=== PATIENT | male | born 1970 | race Caucasian/White ===

== ENCOUNTER 2020-08-24 08:02 | Inpatient (IN) ==
[2020-08-24] MEDS ORDERED: SODIUM CHLORIDE 0.9% 1,000 ML IV STA (08:24)
[2020-08-24] MEDS ORDERED: ETOMIDATE 20 MG/10 ML VIAL IV ONE (08:24)
[2020-08-24] MEDS ORDERED: ROCURONIUM 100 MG/10 ML VIAL IV ONE (08:25)
[2020-08-24 08:35] LABS: Basophils # 0.1 10*3/uL (0.0-0.2); Basophils % 1.4 % (0.0-0.8); Eosinophils # 0.5 10*3/uL (0.0-0.87); Eosinophils % 5.5 % (0.00-10.9); Hematocrit 51.3 VOL% (42.0-52.0); Hemoglobin 17.6 GM/DL (14.0-18.0); Immature Granulocytes % 0.2 %; Immature Granulocytes Absolute 0.02 #; Lymphocytes # 1.9 10*3/uL (1.4-4.0); Lymphocytes % 21.8 % (21.2-54.2); Mean Corpuscular HGB Conc 34.3 GM/DL (32-36); Mean Corpuscular Volume 97.9 FL (87-102); Mean Platelet Volume 9.5 FL (9.6-12.0); Monocytes % 12.8 % (1.7-12.7); Neutrophils % 58.3 % (38.7-73.9); Platelet Count 245 T/CUMM (130-400); Red Blood Count 5.24 MC/CUMM (3.8-5.5); Red Cell Distribution Width 13.8 % (9.3-17.3); White Blood Count 8.8 T/CUMM (4-12)
[2020-08-24 08:51] LABS: INR 1.2; PT Patient Result 12.3 SECS (9.8-11.9); Partial Thromboplastin Time 28.8 SECS (23.9-33.8)
[2020-08-24 09:16] LABS: Alanine Aminotransferase 47 U/L (16-61); Albumin 3.2 G/DL (3.4-5.0); Alkaline Phosphatase 160 U/L (45-117); Aspartate Amino Transferase 87 U/L (0-37); Blood Urea Nitrogen 12 MG/DL (7-18); Calcium 10.6 MG/DL (8.5-10.1); Carbon Dioxide 26 MMOL/L (21-32); Estimated Glom Filtration Rate 81 ML/MIN; Glucose 105 MG/DL (74-106); Osmolality,Calculated 272.8 MOS/KG (273-304); Potassium 4.6 MMOL/L (3.5-5.1); Sodium 137 MMOL/L (136-145); Total Protein 8.3 G/DL (6.4-8.3)
[2020-08-24 09:26] LABS: ABG HCO3 26.2 MMOL/L (20-26); ABG Oxygen Saturation 98.2 % (95-100); ABG PCO2 45.8 MM HG (35-48); ABG PH 7.391 (7.35-7.45); ABG TCO2 22.8 MMOL/L (23-27)
[2020-08-24 09:46] LABS: Bilirubin,Urine Negative (Negative); Blood, Urine Negative (Negative); Glucose,Urine (UA) Negative (Negative); Ketones,Urine Negative (Negative); Nitrite,Urine Negative (Negative); Protein,Urine Negative; Urine Appearance Clear (Clear); Urine Color Amber (Yellow); Urine Specific Gravity 1.005 (1.001-1.035)
[2020-08-24 10:10] LABS: Barbiturates Screen,Urine Negative (Negative); Benzodiazepines Screen,Urine Negative (Negative); Cannabinoid Screen,Urine Positive (Negative); Opiate Screen,Urine Negative (Negative); Phencyclidine Screen,Urine Negative (Negative)
[2020-08-24] MEDS ORDERED: ONDANSETRON 4 MG/2 ML VIAL IV PRN (10:15)
[2020-08-24] MEDS: FAMOTIDINE 20 MG/2 ML VIAL IV SCH ×2 (10:55→21:47)
[2020-08-24] MEDS: ENOXAPARIN 40 MG/0.4 ML SYRINGE SUBCUT SCH (10:58)
[2020-08-24] MEDS: LACTATED RINGERS 1,000 ML IV SCH (10:58)
[2020-08-24 11:52] LABS: Ferritin 534.2 ng/ml (26-388)
[2020-08-24] MEDS ORDERED: LACTULOSE 20 GM/30 ML UDCUP PO SCH (12:00)
[2020-08-24] MEDS: LACTULOSE 20 GM/30 ML UDCUP PO SCH ×2 (15:40→21:44)
[2020-08-24] MEDS: PROPRANOLOL 40 MG TABLET PO SCH (21:44)
[2020-08-24] MEDS: risperiDONE 1 MG TABLET PO SCH (21:44)
[2020-08-25] MEDS: LACTATED RINGERS 1,000 ML IV SCH ×3 (01:31→21:30)
[2020-08-25 03:53] LABS: Allen Test Positive; Pt O2 Delivery Device Ventilator
[2020-08-25 03:55] LABS: ABG Base Excess 2.2 MMOL/L (-2.5-2.5); ABG HCO3 23.4 MMOL/L (20-26); ABG Oxygen Saturation 99.4 % (95-100); ABG PCO2 28.4 MM HG (35-48); ABG PH 7.534 (7.35-7.45); ABG PO2 243.1 MM HG (80-95); ABG TCO2 24.3 MMOL/L (23-27)
[2020-08-25 05:22] LABS: Basophils # 0.2 10*3/uL (0.0-0.2); Basophils % 1.6 % (0.0-0.8); Eosinophils # 0.4 10*3/uL (0.0-0.87); Eosinophils % 4.6 % (0.00-10.9); Hematocrit 47.7 VOL% (42.0-52.0); Hemoglobin 16.3 GM/DL (14.0-18.0); Immature Granulocytes % 0.2 %; Immature Granulocytes Absolute 0.02 #; Lymphocytes # 1.7 10*3/uL (1.4-4.0); Lymphocytes % 18.4 % (21.2-54.2); Mean Corpuscular HGB Conc 34.2 GM/DL (32-36); Mean Platelet Volume 9.4 FL (9.6-12.0); Monocytes % 14.9 % (1.7-12.7); Neutrophils % 60.3 % (38.7-73.9); Platelet Count 183 T/CUMM (130-400); Red Blood Count 4.82 MC/CUMM (3.8-5.5); Red Cell Distribution Width 14.2 % (9.3-17.3); White Blood Count 9.4 T/CUMM (4-12)
[2020-08-25 05:49] LABS: Albumin 2.6 G/DL (3.4-5.0); Bilirubin,Total 2.5 MG/DL (0.2-1.0); Calcium 9.3 MG/DL (8.5-10.1); Osmolality,Calculated 285.8 MOS/KG (273-304); Potassium 3.9 MMOL/L (3.5-5.1); Total Protein 6.7 G/DL (6.4-8.3)
[2020-08-25] MEDS ORDERED: MAGNESIUM SULF RIDER 4 GM in PREMIX 1 EACH IV PRN (07:18)
[2020-08-25] MEDS ORDERED: MAGNESIUM SULF RIDER 2 GM in PREMIX 1 EACH IV PRN (07:18)
[2020-08-25] MEDS: LACTULOSE 20 GM/30 ML UDCUP PO SCH ×3 (09:40→20:14)
[2020-08-25] MEDS: risperiDONE 1 MG TABLET PO SCH ×2 (09:41→20:59)
[2020-08-25] MEDS: PROPRANOLOL 40 MG TABLET PO SCH ×2 (09:41→21:00)
[2020-08-25] MEDS: ENOXAPARIN 40 MG/0.4 ML SYRINGE SUBCUT SCH (10:40)
[2020-08-25] MEDS: RIFAXIMIN 550 MG TABLET PER TUBE SCH ×2 (11:27→21:00)
[2020-08-25] MEDS: FAMOTIDINE 20 MG/2 ML VIAL IV SCH ×2 (11:27→22:42)
[2020-08-25] MEDS: ARFORMOTEROL 15 MCG/2 ML NEB RESP TX SCH (19:01)
[2020-08-26 04:51] LABS: ABG Base Excess 2.6 MMOL/L (-2.5-2.5); ABG HCO3 26.7 MMOL/L (20-26); ABG Oxygen Saturation 97.9 % (95-100); ABG PCO2 34.6 MM HG (35-48); ABG PH 7.478 (7.35-7.45); ABG TCO2 21.4 MMOL/L (23-27); Allen Test Positive; Pt O2 Delivery Device Ventilator
[2020-08-26] MEDS: LACTATED RINGERS 1,000 ML IV SCH ×2 (07:30→18:22)
[2020-08-26 07:34] LABS: Basophils # 0.1 10*3/uL (0.0-0.2); Basophils % 1.2 % (0.0-0.8); Eosinophils # 0.3 10*3/uL (0.0-0.87); Eosinophils % 2.5 % (0.00-10.9); Hematocrit 46.9 VOL% (42.0-52.0); Hemoglobin 15.2 GM/DL (14.0-18.0); Immature Granulocytes % 0.4 %; Immature Granulocytes Absolute 0.04 #; Lymphocytes # 1.7 10*3/uL (1.4-4.0); Lymphocytes % 16.6 % (21.2-54.2); Mean Corpuscular HGB Conc 32.4 GM/DL (32-36); Mean Corpuscular Volume 104.7 FL (87-102); Mean Platelet Volume 10.1 FL (9.6-12.0); Monocytes % 16.8 % (1.7-12.7); Neutrophils % 62.5 % (38.7-73.9); Platelet Count 129 T/CUMM (130-400); Red Blood Count 4.48 MC/CUMM (3.8-5.5); Red Cell Distribution Width 13.9 % (9.3-17.3); White Blood Count 10.3 T/CUMM (4-12)
[2020-08-26 07:49] LABS: Albumin 2.4 G/DL (3.4-5.0); Bilirubin,Total 3.2 MG/DL (0.2-1.0); Calcium 8.7 MG/DL (8.5-10.1); Osmolality,Calculated 291.6 MOS/KG (273-304); Potassium 4.1 MMOL/L (3.5-5.1); Total Protein 6.5 G/DL (6.4-8.3)
[2020-08-26] MEDS: ARFORMOTEROL 15 MCG/2 ML NEB RESP TX SCH ×2 (07:53→19:46)
[2020-08-26 07:57] LABS: Atypical Lymphocytes Few; Band Neutrophils 1 % (0-10); Eosinophils 6 % (0-10); Lymphocytes 16 % (20-55); Segmented Neutrophils 65 % (50-85); Total Cells Counted 100
[2020-08-26 07:58] LABS: Hypochromasia 1+; Microcytosis 1+; Platelet Estimate Adequate
[2020-08-26] MEDS: LACTULOSE 20 GM/30 ML UDCUP PO SCH ×3 (08:17→21:34)
[2020-08-26] MEDS: RIFAXIMIN 550 MG TABLET PER TUBE SCH ×2 (08:17→21:34)
[2020-08-26] MEDS: PROPRANOLOL 40 MG TABLET PO SCH ×2 (08:18→21:34)
[2020-08-26] MEDS: risperiDONE 1 MG TABLET PO SCH ×2 (08:23→21:34)
[2020-08-26] MEDS: ENOXAPARIN 40 MG/0.4 ML SYRINGE SUBCUT SCH (10:11)
[2020-08-26] MEDS: FAMOTIDINE 20 MG/2 ML VIAL IV SCH ×2 (10:11→22:35)
[2020-08-26] MEDS ORDERED: DEXTROSE 50% 25 GM/50 ML VIAL IV PRN (11:46)
[2020-08-26] MEDS ORDERED: GLUCAGON 1 MG VIAL IM PRN (11:46)
[2020-08-26] MEDS: CLINDAMYCIN INJ 600 MG in PREMIX 1 EACH IV SCH ×2 (12:04→21:34)
[2020-08-26] MEDS: INSULIN REGULAR 100 UNIT/ML SUBCUT SCH ×2 (12:27→17:29)
[2020-08-27] MEDS: INSULIN REGULAR 100 UNIT/ML SUBCUT SCH ×4 (01:13→18:22)
[2020-08-27] MEDS: LACTATED RINGERS 1,000 ML IV SCH (04:25)
[2020-08-27] MEDS: CLINDAMYCIN INJ 600 MG in PREMIX 1 EACH IV SCH ×3 (04:30→20:32)
[2020-08-27 04:44] LABS: ABG Base Excess 2.9 MMOL/L (-2.5-2.5); ABG Oxygen Saturation 97.7 % (95-100); ABG PCO2 37.5 MM HG (35-48); ABG PH 7.459 (7.35-7.45); ABG PO2 94.5 MM HG (80-95); ABG TCO2 22.7 MMOL/L (23-27)
[2020-08-27 06:37] LABS: Mean Corpuscular HGB Conc 34.4 GM/DL (32-36)
[2020-08-27 06:48] LABS: Basophils # 0.1 10*3/uL (0.0-0.2); Eosinophils # 0.4 10*3/uL (0.0-0.87); Eosinophils % 5.1 % (0.00-10.9); Hematocrit 41.6 VOL% (42.0-52.0); Hemoglobin 14.3 GM/DL (14.0-18.0); Immature Granulocytes % 0.6 %; Immature Granulocytes Absolute 0.04 #; Lymphocytes # 1.2 10*3/uL (1.4-4.0); Lymphocytes % 16.9 % (21.2-54.2); Mean Corpuscular Volume 100.5 FL (87-102); Mean Platelet Volume 10.2 FL (9.6-12.0); Monocytes % 19.4 % (1.7-12.7); Red Blood Count 4.14 MC/CUMM (3.8-5.5); Red Cell Distribution Width 13.7 % (9.3-17.3)
[2020-08-27 06:51] LABS: Platelet Count 94 T/CUMM (130-400)
[2020-08-27 06:55] LABS: Bilirubin,Total 2.3 MG/DL (0.2-1.0); Calcium 8.7 MG/DL (8.5-10.1); Osmolality,Calculated 290.6 MOS/KG (273-304); Potassium 3.7 MMOL/L (3.5-5.1)
[2020-08-27] MEDS: ARFORMOTEROL 15 MCG/2 ML NEB RESP TX SCH ×2 (07:05→20:01)
[2020-08-27 07:53] LABS: Atypical Lymphocytes Few; Band Neutrophils 1 % (0-10); Eosinophils 3 % (0-10); Hypochromasia Slight; Lymphocytes 14 % (20-55); Segmented Neutrophils 69 % (50-85); Total Cells Counted 100
[2020-08-27 07:54] LABS: Microcytosis 1+; Platelet Estimate Decreased
[2020-08-27] MEDS: PROPRANOLOL 40 MG TABLET PO SCH ×2 (10:22→20:32)
[2020-08-27] MEDS: RIFAXIMIN 550 MG TABLET PER TUBE SCH ×2 (10:22→20:32)
[2020-08-27] MEDS: LACTULOSE 20 GM/30 ML UDCUP PO SCH ×3 (10:22→20:32)
[2020-08-27] MEDS: cefTRIAXone 1,000 MG in SYRINGE 1 EACH IV SCH (10:23)
[2020-08-27] MEDS: risperiDONE 1 MG TABLET PO SCH ×2 (10:26→20:32)
[2020-08-27] MEDS: FAMOTIDINE 20 MG/2 ML VIAL IV SCH ×2 (10:26→22:50)
[2020-08-27] MEDS: DEXMEDETOMIDINE 200 MCG in SODIUM CHLORIDE 0.9% 48 ML IV PRN ×3 (10:35→22:58)
[2020-08-27] MEDS ORDERED: LACTATED RINGERS 1,000 ML IV ONE (18:02)
[2020-08-27] MEDS: PHENYLEPHRINE DRIP 40 MG/250 ML PREMIX IV PRN (23:08)
[2020-08-28] MEDS: DEXMEDETOMIDINE 400 MCG in SODIUM CHLORIDE 0.9% 96 ML IV PRN ×3 (01:25→23:00)
[2020-08-28] MEDS: INSULIN REGULAR 100 UNIT/ML SUBCUT SCH ×4 (01:57→17:10)
[2020-08-28] MEDS: CLINDAMYCIN INJ 600 MG in PREMIX 1 EACH IV SCH ×3 (03:25→21:40)
[2020-08-28 04:52] LABS: ABG Base Excess 2.6 MMOL/L (-2.5-2.5); ABG HCO3 26.7 MMOL/L (20-26); ABG Oxygen Saturation 98.6 % (95-100); ABG PCO2 39.3 MM HG (35-48); ABG PH 7.442 (7.35-7.45); ABG TCO2 22.9 MMOL/L (23-27); Allen Test Positive; Pt O2 Delivery Device Ventilator
[2020-08-28 05:39] LABS: Basophils # 0.1 10*3/uL (0.0-0.2); Eosinophils # 0.4 10*3/uL (0.0-0.87); Eosinophils % 5.4 % (0.00-10.9); Hematocrit 42.1 VOL% (42.0-52.0); Immature Granulocytes % 0.4 %; Immature Granulocytes Absolute 0.03 #; Lymphocytes # 1.5 10*3/uL (1.4-4.0); Lymphocytes % 22.4 % (21.2-54.2); Mean Corpuscular HGB Conc 33.3 GM/DL (32-36); Mean Corpuscular Volume 103.7 FL (87-102); Mean Platelet Volume 10.4 FL (9.6-12.0); Monocytes % 19.4 % (1.7-12.7); Neutrophils % 51.4 % (38.7-73.9); Platelet Count 108 T/CUMM (130-400); Red Blood Count 4.06 MC/CUMM (3.8-5.5); Red Cell Distribution Width 13.3 % (9.3-17.3); White Blood Count 6.9 T/CUMM (4-12)
[2020-08-28 06:07] LABS: Anisocytosis 1+; Band Neutrophils 6 % (0-10); Eosinophils 5 % (0-10); Lymphocytes 19 % (20-55); Macrocytosis 1+; Platelet Estimate Adequate; Segmented Neutrophils 52 % (50-85); Total Cells Counted 100
[2020-08-28 06:18] LABS: Bilirubin,Total 2.2 MG/DL (0.2-1.0); Calcium 8.7 MG/DL (8.5-10.1); Osmolality,Calculated 291.6 MOS/KG (273-304)
[2020-08-28] MEDS: ARFORMOTEROL 15 MCG/2 ML NEB RESP TX SCH ×2 (08:11→19:55)
[2020-08-28] MEDS: RIFAXIMIN 550 MG TABLET PER TUBE SCH ×2 (08:45→21:45)
[2020-08-28] MEDS: PROPRANOLOL 40 MG TABLET PO SCH ×2 (08:45→21:45)
[2020-08-28] MEDS: cefTRIAXone 1,000 MG in SYRINGE 1 EACH IV SCH (08:46)
[2020-08-28] MEDS: LACTULOSE 20 GM/30 ML UDCUP PO SCH ×3 (08:46→21:45)
[2020-08-28] MEDS: risperiDONE 1 MG TABLET PO SCH ×2 (08:46→21:45)
[2020-08-28] MEDS: FAMOTIDINE 20 MG/2 ML VIAL IV SCH ×2 (09:43→22:48)
[2020-08-28] MEDS: PHENYLEPHRINE DRIP 40 MG/250 ML PREMIX IV PRN (12:50)
[2020-08-29] MEDS: INSULIN REGULAR 100 UNIT/ML SUBCUT SCH ×4 (00:07→17:56)
[2020-08-29] MEDS: DEXMEDETOMIDINE 400 MCG in SODIUM CHLORIDE 0.9% 96 ML IV PRN ×3 (03:15→19:27)
[2020-08-29] MEDS: CLINDAMYCIN INJ 600 MG in PREMIX 1 EACH IV SCH ×3 (04:05→21:33)
[2020-08-29 04:10] LABS: Basophils # 0.1 10*3/uL (0.0-0.2); Basophils % 1.4 % (0.0-0.8); Eosinophils # 0.3 10*3/uL (0.0-0.87); Eosinophils % 5.1 % (0.00-10.9); Hemoglobin 13.8 GM/DL (14.0-18.0); Immature Granulocytes % 0.4 %; Immature Granulocytes Absolute 0.02 #; Lymphocytes # 1.5 10*3/uL (1.4-4.0); Mean Corpuscular HGB Conc 33.7 GM/DL (32-36); Mean Corpuscular Volume 101.5 FL (87-102); Mean Platelet Volume 10.3 FL (9.6-12.0); Monocytes % 18.3 % (1.7-12.7); Neutrophils % 47.8 % (38.7-73.9); Platelet Count 115 T/CUMM (130-400); Red Blood Count 4.04 MC/CUMM (3.8-5.5); Red Cell Distribution Width 13.4 % (9.3-17.3); White Blood Count 5.6 T/CUMM (4-12)
[2020-08-29 04:50] LABS: Bilirubin,Total 1.5 MG/DL (0.2-1.0); Calcium 8.5 MG/DL (8.5-10.1); Osmolality,Calculated 294.4 MOS/KG (273-304)
[2020-08-29 05:04] LABS: ABG Base Excess 0.6 MMOL/L (-2.5-2.5); ABG HCO3 23.8 MMOL/L (20-26); ABG Oxygen Saturation 95.5 % (95-100); ABG PCO2 34.2 MM HG (35-48); ABG PH 7.461 (7.35-7.45); ABG PO2 78.5 MM HG (80-95); ABG TCO2 24.9 MMOL/L (23-27); Allen Test Positive; Pt O2 Delivery Device Ventilator
[2020-08-29 06:34] LABS: Anisocytosis 2+; Band Neutrophils 3 % (0-10); Eosinophils 4 % (0-10); Hypochromasia 1+; Lymphocytes 25 % (20-55); Macrocytosis 2+; Metamyelocytes 3 %; Platelet Estimate Decreased; Segmented Neutrophils 48 % (50-85); Total Cells Counted 100
[2020-08-29] MEDS: ARFORMOTEROL 15 MCG/2 ML NEB RESP TX SCH ×2 (08:09→19:05)
[2020-08-29] MEDS: PROPRANOLOL 40 MG TABLET PO SCH ×2 (08:48→20:45)
[2020-08-29] MEDS: LACTULOSE 20 GM/30 ML UDCUP PO SCH ×3 (08:48→20:45)
[2020-08-29] MEDS: risperiDONE 1 MG TABLET PO SCH ×2 (08:48→20:45)
[2020-08-29] MEDS: RIFAXIMIN 550 MG TABLET PER TUBE SCH ×2 (08:48→20:45)
[2020-08-29] MEDS: cefTRIAXone 1,000 MG in SYRINGE 1 EACH IV SCH (08:49)
[2020-08-29] MEDS: FAMOTIDINE 20 MG/2 ML VIAL IV SCH ×2 (09:36→22:26)
[2020-08-29] MEDS: PHENYLEPHRINE DRIP 40 MG/250 ML PREMIX IV PRN (11:44)
[2020-08-30] MEDS: INSULIN REGULAR 100 UNIT/ML SUBCUT SCH ×4 (01:05→17:27)
[2020-08-30 04:29] LABS: ABG Base Excess -0.3 MMOL/L (-2.5-2.5); ABG HCO3 24.2 MMOL/L (20-26); ABG Oxygen Saturation 96.8 % (95-100); ABG PH 7.403 (7.35-7.45); ABG PO2 91.4 MM HG (80-95); ABG TCO2 21.2 MMOL/L (23-27); Allen Test Positive; Pt O2 Delivery Device Ventilator
[2020-08-30] MEDS: CLINDAMYCIN INJ 600 MG in PREMIX 1 EACH IV SCH ×2 (05:36→13:30)
[2020-08-30] MEDS: DEXMEDETOMIDINE 400 MCG in SODIUM CHLORIDE 0.9% 96 ML IV PRN (05:55)
[2020-08-30 06:27] LABS: Basophils # 0.1 10*3/uL (0.0-0.2); Basophils % 1.7 % (0.0-0.8); Eosinophils # 0.4 10*3/uL (0.0-0.87); Eosinophils % 6.4 % (0.00-10.9); Hemoglobin 13.8 GM/DL (14.0-18.0); Immature Granulocytes % 0.3 %; Immature Granulocytes Absolute 0.02 #; Lymphocytes # 1.3 10*3/uL (1.4-4.0); Lymphocytes % 22.1 % (21.2-54.2); Mean Corpuscular HGB Conc 32.1 GM/DL (32-36); Mean Corpuscular Volume 105.9 FL (87-102); Mean Platelet Volume 10.7 FL (9.6-12.0); Monocytes % 22.4 % (1.7-12.7); Neutrophils % 47.1 % (38.7-73.9); Platelet Count 126 T/CUMM (130-400); Red Blood Count 4.06 MC/CUMM (3.8-5.5); Red Cell Distribution Width 13.4 % (9.3-17.3)
[2020-08-30 06:57] LABS: Eosinophils 9 % (0-10); Hypochromasia 1+; Lymphocytes 22 % (20-55); Platelet Estimate Normal; Segmented Neutrophils 52 % (50-85); Total Cells Counted 100
[2020-08-30 06:58] LABS: Microcytosis 1+
[2020-08-30 07:03] LABS: Bilirubin,Total 1.5 MG/DL (0.2-1.0); Calcium 8.7 MG/DL (8.5-10.1); Osmolality,Calculated 293.6 MOS/KG (273-304); Potassium 3.8 MMOL/L (3.5-5.1); Total Protein 6.3 G/DL (6.4-8.3)
[2020-08-30] MEDS: ARFORMOTEROL 15 MCG/2 ML NEB RESP TX SCH ×2 (07:46→19:28)
[2020-08-30] MEDS: LACTULOSE 20 GM/30 ML UDCUP PO SCH ×3 (09:21→21:59)
[2020-08-30] MEDS: RIFAXIMIN 550 MG TABLET PER TUBE SCH ×2 (09:21→21:59)
[2020-08-30] MEDS: cefTRIAXone 1,000 MG in SYRINGE 1 EACH IV SCH (09:21)
[2020-08-30] MEDS: risperiDONE 1 MG TABLET PO SCH ×2 (09:22→21:59)
[2020-08-30] MEDS: PROPRANOLOL 40 MG TABLET PO SCH ×2 (09:22→21:59)
[2020-08-30] MEDS: FAMOTIDINE 20 MG/2 ML VIAL IV SCH ×2 (10:49→21:59)
[2020-08-30] MEDS ORDERED: FUROSEMIDE 40 MG/4 ML VIAL IV ONE (15:04)
[2020-08-30] MEDS: QUEtiapine 25 MG TABLET PO SCH (21:59)
[2020-08-31] MEDS: INSULIN REGULAR 100 UNIT/ML SUBCUT SCH ×4 (00:29→18:05)
[2020-08-31] MEDS: CLINDAMYCIN INJ 600 MG in PREMIX 1 EACH IV SCH ×4 (00:30→21:00)
[2020-08-31 03:30] LABS: ABG Base Excess -0.8 MMOL/L (-2.5-2.5); ABG HCO3 23.8 MMOL/L (20-26); ABG Oxygen Saturation 98.3 % (95-100); ABG PCO2 41.6 MM HG (35-48); ABG PH 7.377 (7.35-7.45); ABG TCO2 21.3 MMOL/L (23-27); Allen Test Positive
[2020-08-31 05:44] LABS: Albumin 1.9 G/DL (3.4-5.0); Bilirubin,Total 2.5 MG/DL (0.2-1.0); Calcium 8.9 MG/DL (8.5-10.1); Osmolality,Calculated 288.8 MOS/KG (273-304); Potassium 3.6 MMOL/L (3.5-5.1); Total Protein 6.1 G/DL (6.4-8.3)
[2020-08-31 06:45] LABS: Basophils # 0.1 10*3/uL (0.0-0.2); Basophils % 1.4 % (0.0-0.8); Eosinophils # 0.6 10*3/uL (0.0-0.87); Eosinophils % 8.4 % (0.00-10.9); Hematocrit 38.4 VOL% (42.0-52.0); Hemoglobin 12.8 GM/DL (14.0-18.0); Immature Granulocytes % 0.3 %; Immature Granulocytes Absolute 0.02 #; Lymphocytes # 1.3 10*3/uL (1.4-4.0); Lymphocytes % 18.9 % (21.2-54.2); Mean Corpuscular HGB Conc 33.3 GM/DL (32-36); Mean Corpuscular Volume 104.3 FL (87-102); Mean Platelet Volume 10.9 FL (9.6-12.0); Monocytes % 16.3 % (1.7-12.7); Neutrophils % 54.7 % (38.7-73.9); Platelet Count 115 T/CUMM (130-400); Red Blood Count 3.68 MC/CUMM (3.8-5.5); Red Cell Distribution Width 13.2 % (9.3-17.3); White Blood Count 6.6 T/CUMM (4-12)
[2020-08-31] MEDS: ARFORMOTEROL 15 MCG/2 ML NEB RESP TX SCH ×2 (06:51→19:44)
[2020-08-31 06:56] LABS: Eosinophils 9 % (0-10); Hypochromasia Slight; Lymphocytes 16 % (20-55); Microcytosis Slight; Platelet Estimate Decreased; Segmented Neutrophils 62 % (50-85); Total Cells Counted 100
[2020-08-31] MEDS: RIFAXIMIN 550 MG TABLET PER TUBE SCH ×2 (08:54→21:12)
[2020-08-31] MEDS: cefTRIAXone 1,000 MG in SYRINGE 1 EACH IV SCH (08:54)
[2020-08-31] MEDS: LACTULOSE 20 GM/30 ML UDCUP PO SCH ×3 (08:55→20:59)
[2020-08-31] MEDS: risperiDONE 1 MG TABLET PO SCH ×2 (08:56→21:17)
[2020-08-31] MEDS: FAMOTIDINE 20 MG/2 ML VIAL IV SCH ×2 (10:47→21:33)
[2020-08-31] MEDS: PROPRANOLOL 40 MG TABLET PO SCH ×2 (11:01→21:01)
[2020-08-31] MEDS: QUEtiapine 25 MG TABLET PO SCH ×2 (11:01→21:12)
[2020-08-31] MEDS ORDERED: THIAMINE INJ 100 MG, FOLIC ACID INJ 1 MG, MULTIVITAMIN INJ 10 ML in DEXTROSE 5% NACL 0.... IV ONE ×2 (12:00→12:30)
[2020-09-01] MEDS: INSULIN REGULAR 100 UNIT/ML SUBCUT SCH ×5 (00:02→20:11)
[2020-09-01 04:50] LABS: Basophils # 0.1 10*3/uL (0.0-0.2); Basophils % 0.9 % (0.0-0.8); Eosinophils # 0.6 10*3/uL (0.0-0.87); Eosinophils % 8.6 % (0.00-10.9); Hematocrit 37.7 VOL% (42.0-52.0); Hemoglobin 12.7 GM/DL (14.0-18.0); Immature Granulocytes % 0.5 %; Immature Granulocytes Absolute 0.03 #; Lymphocytes # 1.3 10*3/uL (1.4-4.0); Lymphocytes % 19.6 % (21.2-54.2); Mean Corpuscular HGB Conc 33.7 GM/DL (32-36); Mean Corpuscular Volume 102.7 FL (87-102); Mean Platelet Volume 11.1 FL (9.6-12.0); Monocytes % 16.4 % (1.7-12.7); Platelet Count 117 T/CUMM (130-400); Red Blood Count 3.67 MC/CUMM (3.8-5.5); Red Cell Distribution Width 13.1 % (9.3-17.3); White Blood Count 6.5 T/CUMM (4-12)
[2020-09-01 05:10] LABS: Calcium 8.4 MG/DL (8.5-10.1); Osmolality,Calculated 283.1 MOS/KG (273-304); Potassium 3.1 MMOL/L (3.5-5.1)
[2020-09-01 05:15] LABS: Eosinophils 6 % (0-10); Hypochromasia 1+; Lymphocytes 16 % (20-55); Microcytosis 1+; Platelet Estimate Decreased; Segmented Neutrophils 65 % (50-85); Total Cells Counted 100
[2020-09-01] MEDS: POTASSIUM CHLORIDE 20 MEQ TABLET PO PRN ×2 (05:56→11:15)
[2020-09-01] MEDS: ARFORMOTEROL 15 MCG/2 ML NEB RESP TX SCH ×2 (07:12→21:12)
[2020-09-01] MEDS: RIFAXIMIN 550 MG TABLET PER TUBE SCH ×2 (08:36→21:06)
[2020-09-01] MEDS: cefTRIAXone 1,000 MG in SYRINGE 1 EACH IV SCH (08:36)
[2020-09-01] MEDS: LACTULOSE 20 GM/30 ML UDCUP PO SCH ×3 (08:36→21:10)
[2020-09-01] MEDS: QUEtiapine 25 MG TABLET PO SCH ×2 (08:36→21:07)
[2020-09-01] MEDS: PROPRANOLOL 40 MG TABLET PO SCH ×2 (08:36→21:07)
[2020-09-01] MEDS: risperiDONE 1 MG TABLET PO SCH ×2 (08:40→21:07)
[2020-09-01] MEDS: FAMOTIDINE 20 MG/2 ML VIAL IV SCH ×2 (09:43→23:06)
[2020-09-01] MEDS: POTASSIUM CHLORIDE 20 MEQ/15 ML UDCUP PO SCH ×3 (11:37→23:06)
[2020-09-02 05:57] LABS: Basophils # 0.1 10*3/uL (0.0-0.2); Basophils % 1.5 % (0.0-0.8); Eosinophils # 0.5 10*3/uL (0.0-0.87); Eosinophils % 8.7 % (0.00-10.9); Hematocrit 37.9 VOL% (42.0-52.0); Hemoglobin 13.2 GM/DL (14.0-18.0); Immature Granulocytes % 0.7 %; Immature Granulocytes Absolute 0.04 #; Lymphocytes # 1.2 10*3/uL (1.4-4.0); Mean Corpuscular HGB Conc 34.8 GM/DL (32-36); Mean Corpuscular Volume 100.5 FL (87-102); Mean Platelet Volume 10.6 FL (9.6-12.0); Monocytes % 15.8 % (1.7-12.7); Neutrophils % 53.3 % (38.7-73.9); Platelet Count 139 T/CUMM (130-400); Red Blood Count 3.77 MC/CUMM (3.8-5.5); Red Cell Distribution Width 13.2 % (9.3-17.3); White Blood Count 6.1 T/CUMM (4-12)
[2020-09-02 06:59] LABS: Anisocytosis 2+; Band Neutrophils 4 % (0-10); Eosinophils 13 % (0-10); Lymphocytes 21 % (20-55); Platelet Estimate Adequate; Segmented Neutrophils 49 % (50-85); Total Cells Counted 100
[2020-09-02 07:00] LABS: Macrocytosis 1+
[2020-09-02] MEDS: ARFORMOTEROL 15 MCG/2 ML NEB RESP TX SCH ×2 (07:20→19:13)
[2020-09-02] MEDS: INSULIN REGULAR 100 UNIT/ML SUBCUT SCH ×4 (08:12→21:22)
[2020-09-02] MEDS: PROPRANOLOL 40 MG TABLET PO SCH (09:56)
[2020-09-02] MEDS: RIFAXIMIN 550 MG TABLET PER TUBE SCH (09:56)
[2020-09-02] MEDS: QUEtiapine 25 MG TABLET PO SCH (09:56)
[2020-09-02] MEDS: risperiDONE 1 MG TABLET PO SCH (09:56)
[2020-09-02] MEDS: cefTRIAXone 1,000 MG in SYRINGE 1 EACH IV SCH (09:57)
[2020-09-02] MEDS: LACTULOSE 20 GM/30 ML UDCUP PO SCH ×2 (09:57→17:24)
[2020-09-02] MEDS: FAMOTIDINE 20 MG/2 ML VIAL IV SCH (10:00)
[2020-09-02] MEDS: LORazepam 2 MG/1 ML VIAL IV PRN ×2 (11:17→20:12)
[2020-09-03] MEDS: FAMOTIDINE 20 MG/2 ML VIAL IV SCH ×3 (00:01→23:29)
[2020-09-03] MEDS: RIFAXIMIN 550 MG TABLET PER TUBE SCH ×4 (00:04→23:35)
[2020-09-03] MEDS: QUEtiapine 25 MG TABLET PO SCH ×4 (00:04→23:35)
[2020-09-03] MEDS: LACTULOSE 20 GM/30 ML UDCUP PO SCH ×5 (00:05→23:35)
[2020-09-03] MEDS: risperiDONE 1 MG TABLET PO SCH ×4 (00:05→23:35)
[2020-09-03] MEDS: PROPRANOLOL 40 MG TABLET PO SCH ×4 (00:05→23:35)
[2020-09-03] MEDS: LORazepam 2 MG/1 ML VIAL IV PRN ×4 (00:25→21:09)
[2020-09-03 05:39] LABS: Basophils # 0.1 10*3/uL (0.0-0.2); Basophils % 1.6 % (0.0-0.8); Eosinophils # 0.3 10*3/uL (0.0-0.87); Eosinophils % 5.1 % (0.00-10.9); Hematocrit 38.8 VOL% (42.0-52.0); Hemoglobin 13.2 GM/DL (14.0-18.0); Immature Granulocytes % 0.3 %; Immature Granulocytes Absolute 0.02 #; Lymphocytes # 1.2 10*3/uL (1.4-4.0); Lymphocytes % 19.3 % (21.2-54.2); Mean Corpuscular Volume 101.3 FL (87-102); Mean Platelet Volume 10.8 FL (9.6-12.0); Monocytes % 16.8 % (1.7-12.7); Neutrophils % 56.9 % (38.7-73.9); Platelet Count 135 T/CUMM (130-400); Red Blood Count 3.83 MC/CUMM (3.8-5.5); Red Cell Distribution Width 13.5 % (9.3-17.3); White Blood Count 6.3 T/CUMM (4-12)
[2020-09-03 06:01] LABS: Calcium 8.7 MG/DL (8.5-10.1); Potassium 3.4 MMOL/L (3.5-5.1)
[2020-09-03 06:29] LABS: Band Neutrophils 2 % (0-10); Eosinophils 6 % (0-10); Hypochromasia Slight; Lymphocytes 17 % (20-55); Segmented Neutrophils 64 % (50-85); Total Cells Counted 100
[2020-09-03 06:30] LABS: Microcytosis 1+; Platelet Estimate Adequate; Polychromasia Slight
[2020-09-03] MEDS: ARFORMOTEROL 15 MCG/2 ML NEB RESP TX SCH ×2 (06:58→20:27)
[2020-09-03 08:50] LABS: Albumin 2.3 G/DL (3.4-5.0); Bilirubin,Direct 0.7 MG/DL (0.0-0.20); Bilirubin,Total 1.7 MG/DL (0.2-1.0); Total Protein 6.2 G/DL (5.0-7.5)
[2020-09-03] MEDS: cefTRIAXone 1,000 MG in SYRINGE 1 EACH IV SCH (09:45)
[2020-09-03] MEDS: INSULIN REGULAR 100 UNIT/ML SUBCUT SCH ×4 (09:49→23:37)
[2020-09-03] MEDS: LACTATED RINGERS 1,000 ML IV SCH (10:38)
[2020-09-03] MEDS ORDERED: propofoL 200 MG/20 ML VIAL IV ONE (10:58)
[2020-09-03] MEDS ORDERED: LIDOCAINE 2% 5 ML VIAL ONE (10:58)
[2020-09-03] MEDS ORDERED: POTASSIUM CHLORIDE 20 MEQ/15 ML UDCUP PO ONE (14:32)
[2020-09-04 06:12] LABS: Basophils # 0.1 10*3/uL (0.0-0.2); Basophils % 1.3 % (0.0-0.8); Eosinophils # 0.3 10*3/uL (0.0-0.87); Eosinophils % 5.1 % (0.00-10.9); Hematocrit 36.5 VOL% (42.0-52.0); Hemoglobin 12.8 GM/DL (14.0-18.0); Immature Granulocytes % 0.3 %; Immature Granulocytes Absolute 0.02 #; Lymphocytes # 1.4 10*3/uL (1.4-4.0); Lymphocytes % 20.5 % (21.2-54.2); Mean Corpuscular HGB Conc 35.1 GM/DL (32-36); Mean Platelet Volume 10.4 FL (9.6-12.0); Monocytes % 15.6 % (1.7-12.7); Neutrophils % 57.2 % (38.7-73.9); Platelet Count 138 T/CUMM (130-400); Red Blood Count 3.65 MC/CUMM (3.8-5.5); Red Cell Distribution Width 13.6 % (9.3-17.3); White Blood Count 6.7 T/CUMM (4-12)
[2020-09-04 06:26] LABS: Calcium 8.7 MG/DL (8.5-10.1); Osmolality,Calculated 283.8 MOS/KG (273-304); Potassium 3.3 MMOL/L (3.5-5.1)
[2020-09-04 06:46] LABS: Eosinophils 4 % (0-10); Hypochromasia 1+; Lymphocytes 14 % (20-55); Microcytosis Slight; Platelet Estimate Normal; Segmented Neutrophils 70 % (50-85); Total Cells Counted 100
[2020-09-04] MEDS: ARFORMOTEROL 15 MCG/2 ML NEB RESP TX SCH ×2 (07:15→19:23)
[2020-09-04] MEDS: LACTATED RINGERS 1,000 ML IV SCH (07:33)
[2020-09-04] MEDS: INSULIN REGULAR 100 UNIT/ML SUBCUT SCH ×4 (08:50→20:30)
[2020-09-04] MEDS: PROPRANOLOL 40 MG TABLET PO SCH ×2 (09:40→20:35)
[2020-09-04] MEDS: LACTULOSE 20 GM/30 ML UDCUP PO SCH ×3 (09:41→22:23)
[2020-09-04] MEDS: RIFAXIMIN 550 MG TABLET PER TUBE SCH ×2 (09:41→20:35)
[2020-09-04] MEDS: QUEtiapine 25 MG TABLET PO SCH (09:41)
[2020-09-04] MEDS: risperiDONE 1 MG TABLET PO SCH ×2 (09:41→20:35)
[2020-09-04] MEDS: POTASSIUM CHLORIDE 20 MEQ TABLET PO PRN ×4 (09:41→22:44)
[2020-09-04] MEDS: FAMOTIDINE 20 MG/2 ML VIAL IV SCH ×2 (09:46→22:44)
[2020-09-04] MEDS ORDERED: POTASSIUM CHLORIDE 20 MEQ/15 ML UDCUP PO ONE (11:52)
[2020-09-04] MEDS ORDERED: MAGNESIUM SULF RIDER 2 GM in PREMIX 1 EACH IV ONE (11:52)
[2020-09-04 16:10] LABS: Albumin 2.2 G/DL (3.4-5.0); Bilirubin,Total 1.6 MG/DL (0.2-1.0); Calcium 8.4 MG/DL (8.5-10.1); Potassium 3.5 MMOL/L (3.5-5.1); Total Protein 6.3 G/DL (5.0-7.5)
[2020-09-04] MEDS: traZODone 50 MG TABLET PO PRN (20:35)
[2020-09-04] MEDS: LORazepam 2 MG/1 ML VIAL IV PRN (22:46)
[2020-09-05 06:14] LABS: Basophils # 0.1 10*3/uL (0.0-0.2); Basophils % 1.6 % (0.0-0.8); Eosinophils # 0.5 10*3/uL (0.0-0.87); Eosinophils % 7.5 % (0.00-10.9); Hematocrit 37.3 VOL% (42.0-52.0); Hemoglobin 12.8 GM/DL (14.0-18.0); Immature Granulocytes % 0.3 %; Immature Granulocytes Absolute 0.02 #; Lymphocytes # 1.3 10*3/uL (1.4-4.0); Lymphocytes % 19.8 % (21.2-54.2); Mean Corpuscular HGB Conc 34.3 GM/DL (32-36); Mean Platelet Volume 10.4 FL (9.6-12.0); Monocytes % 16.1 % (1.7-12.7); Neutrophils % 54.7 % (38.7-73.9); Platelet Count 159 T/CUMM (130-400); Red Blood Count 3.73 MC/CUMM (3.8-5.5); Red Cell Distribution Width 13.5 % (9.3-17.3); White Blood Count 6.4 T/CUMM (4-12)
[2020-09-05 06:37] LABS: Eosinophils 6 % (0-10); Lymphocytes 16 % (20-55); Macrocytosis Slight; Platelet Estimate Normal; Segmented Neutrophils 68 % (50-85); Total Cells Counted 100
[2020-09-05] MEDS: ARFORMOTEROL 15 MCG/2 ML NEB RESP TX SCH ×2 (06:56→19:12)
[2020-09-05] MEDS: LACTATED RINGERS 1,000 ML IV SCH (08:11)
[2020-09-05] MEDS: INSULIN REGULAR 100 UNIT/ML SUBCUT SCH ×4 (08:11→20:26)
[2020-09-05] MEDS: RIFAXIMIN 550 MG TABLET PER TUBE SCH ×2 (09:56→21:20)
[2020-09-05] MEDS: LACTULOSE 20 GM/30 ML UDCUP PO SCH ×3 (09:56→21:18)
[2020-09-05] MEDS: risperiDONE 1 MG TABLET PO SCH ×2 (09:57→21:20)
[2020-09-05] MEDS: POTASSIUM CHLORIDE 20 MEQ TABLET PO PRN (09:57)
[2020-09-05] MEDS: PROPRANOLOL 40 MG TABLET PO SCH ×2 (09:57→21:20)
[2020-09-05] MEDS: FAMOTIDINE 20 MG/2 ML VIAL IV SCH ×2 (09:59→22:11)
[2020-09-05] MEDS: traZODone 50 MG TABLET PO PRN (21:20)
[2020-09-06 06:13] LABS: Basophils # 0.1 10*3/uL (0.0-0.2); Basophils % 2.1 % (0.0-0.8); Eosinophils # 0.4 10*3/uL (0.0-0.87); Eosinophils % 7.7 % (0.00-10.9); Hematocrit 37.5 VOL% (42.0-52.0); Hemoglobin 13.1 GM/DL (14.0-18.0); Immature Granulocytes % 0.4 %; Immature Granulocytes Absolute 0.02 #; Lymphocytes # 1.2 10*3/uL (1.4-4.0); Lymphocytes % 20.5 % (21.2-54.2); Mean Corpuscular HGB Conc 34.9 GM/DL (32-36); Mean Corpuscular Volume 98.2 FL (87-102); Mean Platelet Volume 10.2 FL (9.6-12.0); Monocytes % 16.1 % (1.7-12.7); Neutrophils % 53.2 % (38.7-73.9); Platelet Count 192 T/CUMM (130-400); Red Blood Count 3.82 MC/CUMM (3.8-5.5); Red Cell Distribution Width 13.8 % (9.3-17.3); White Blood Count 5.7 T/CUMM (4-12)
[2020-09-06 06:44] LABS: Albumin 2.2 G/DL (3.4-5.0); Bilirubin,Direct 0.42 MG/DL (0.0-0.20); Bilirubin,Indirect 1.2 MG/DL (0.0-1.0); Bilirubin,Total 1.6 MG/DL (0.2-1.0); Calcium 8.8 MG/DL (8.5-10.1); Potassium 3.3 MMOL/L (3.5-5.1); Total Protein 6.3 G/DL (5.0-7.5)
[2020-09-06] MEDS: ARFORMOTEROL 15 MCG/2 ML NEB RESP TX SCH ×2 (07:20→19:18)
[2020-09-06] MEDS: INSULIN REGULAR 100 UNIT/ML SUBCUT SCH ×4 (07:31→20:47)
[2020-09-06 07:53] LABS: Eosinophils 4 % (0-10); Lymphocytes 19 % (20-55); Platelet Estimate Adequate; Segmented Neutrophils 65 % (50-85); Total Cells Counted 100
[2020-09-06] MEDS ORDERED: LACTATED RINGERS 1,000 ML IV SCH (08:00)
[2020-09-06] MEDS: LACTATED RINGERS 1,000 ML IV SCH (08:37)
[2020-09-06] MEDS: PROPRANOLOL 40 MG TABLET PO SCH ×2 (08:38→20:46)
[2020-09-06] MEDS: risperiDONE 1 MG TABLET PO SCH ×2 (08:39→20:46)
[2020-09-06] MEDS: RIFAXIMIN 550 MG TABLET PER TUBE SCH ×2 (08:39→20:46)
[2020-09-06] MEDS: LACTULOSE 20 GM/30 ML UDCUP PO SCH ×3 (08:39→20:47)
[2020-09-06] MEDS ORDERED: POTASSIUM CHLORIDE 20 MEQ/15 ML UDCUP PO ONE (10:51)
[2020-09-06] MEDS: FAMOTIDINE 20 MG/2 ML VIAL IV SCH ×2 (11:15→21:30)
[2020-09-07 05:34] LABS: Basophils # 0.1 10*3/uL (0.0-0.2); Basophils % 1.8 % (0.0-0.8); Eosinophils # 0.4 10*3/uL (0.0-0.87); Eosinophils % 6.6 % (0.00-10.9); Hematocrit 37.3 VOL% (42.0-52.0); Hemoglobin 12.7 GM/DL (14.0-18.0); Immature Granulocytes % 0.3 %; Immature Granulocytes Absolute 0.02 #; Lymphocytes # 1.5 10*3/uL (1.4-4.0); Lymphocytes % 22.1 % (21.2-54.2); Mean Corpuscular Volume 101.1 FL (87-102); Mean Platelet Volume 10.5 FL (9.6-12.0); Neutrophils % 56.2 % (38.7-73.9); Platelet Count 200 T/CUMM (130-400); Red Blood Count 3.69 MC/CUMM (3.8-5.5); Red Cell Distribution Width 13.9 % (9.3-17.3); White Blood Count 6.6 T/CUMM (4-12)
[2020-09-07 05:53] LABS: Platelet Estimate Adequate
[2020-09-07 06:09] LABS: Albumin 2.1 G/DL (3.4-5.0); Bilirubin,Total 1.5 MG/DL (0.2-1.0); Calcium 8.9 MG/DL (8.5-10.1); Osmolality,Calculated 277.4 MOS/KG (273-304); Potassium 3.4 MMOL/L (3.5-5.1); Total Protein 6.3 G/DL (5.0-7.5)
[2020-09-07] MEDS: INSULIN REGULAR 100 UNIT/ML SUBCUT SCH ×4 (07:01→21:32)
[2020-09-07] MEDS: ARFORMOTEROL 15 MCG/2 ML NEB RESP TX SCH ×2 (07:15→20:14)
[2020-09-07] MEDS: PROPRANOLOL 40 MG TABLET PO SCH ×2 (09:16→20:10)
[2020-09-07] MEDS: RIFAXIMIN 550 MG TABLET PER TUBE SCH ×2 (09:16→20:10)
[2020-09-07] MEDS: risperiDONE 1 MG TABLET PO SCH ×2 (09:16→20:10)
[2020-09-07] MEDS: LACTULOSE 20 GM/30 ML UDCUP PO SCH ×3 (09:16→20:10)
[2020-09-07] MEDS: LACTATED RINGERS 1,000 ML IV SCH (11:06)
[2020-09-07] MEDS: FAMOTIDINE 20 MG/2 ML VIAL IV SCH ×2 (11:15→21:32)
[2020-09-07] MEDS ORDERED: SODIUM CHLORIDE 0.9% 500 ML IV ONE (16:41)
[2020-09-07] MEDS ORDERED: MECLIZINE 12.5 MG TABLET PO PRN (17:01)
[2020-09-07] MEDS ORDERED: POTASSIUM CHLORIDE 20 MEQ/15 ML UDCUP PO ONE (17:02)
[2020-09-07] MEDS: SODIUM CHLORIDE 0.9% 1,000 ML IV SCH (17:32)
[2020-09-08 06:08] LABS: Basophils # 0.1 10*3/uL (0.0-0.2); Basophils % 2.1 % (0.0-0.8); Eosinophils # 0.5 10*3/uL (0.0-0.87); Eosinophils % 8.7 % (0.00-10.9); Hematocrit 37.7 VOL% (42.0-52.0); Hemoglobin 13.1 GM/DL (14.0-18.0); Immature Granulocytes % 0.4 %; Immature Granulocytes Absolute 0.02 #; Lymphocytes # 1.4 10*3/uL (1.4-4.0); Lymphocytes % 26.7 % (21.2-54.2); Mean Corpuscular HGB Conc 34.7 GM/DL (32-36); Mean Corpuscular Volume 101.3 FL (87-102); Mean Platelet Volume 10.3 FL (9.6-12.0); Monocytes % 16.4 % (1.7-12.7); Neutrophils % 45.7 % (38.7-73.9); Platelet Count 178 T/CUMM (130-400); Red Blood Count 3.72 MC/CUMM (3.8-5.5); Red Cell Distribution Width 13.8 % (9.3-17.3); White Blood Count 5.2 T/CUMM (4-12)
[2020-09-08 06:34] LABS: Band Neutrophils 1 % (0-10); Eosinophils 8 % (0-10); Lymphocytes 18 % (20-55); Segmented Neutrophils 59 % (50-85); Total Cells Counted 100
[2020-09-08 06:35] LABS: Hypochromasia Slight; Macrocytosis Slight; Platelet Estimate Adequate
[2020-09-08 07:05] LABS: Bilirubin,Direct 0.35 MG/DL (0.0-0.20); Bilirubin,Indirect 0.6 MG/DL (0.0-1.0); Bilirubin,Total 0.9 MG/DL (0.2-1.0); Calcium 8.4 MG/DL (8.5-10.1); Osmolality,Calculated 280.1 MOS/KG (273-304); Potassium 3.7 MMOL/L (3.5-5.1); Total Protein 5.9 G/DL (5.0-7.5)
[2020-09-08] MEDS: ARFORMOTEROL 15 MCG/2 ML NEB RESP TX SCH ×2 (07:34→19:41)
[2020-09-08] MEDS: PROPRANOLOL 40 MG TABLET PO SCH (09:17)
[2020-09-08] MEDS: risperiDONE 1 MG TABLET PO SCH ×2 (09:17→21:41)
[2020-09-08] MEDS: LACTULOSE 20 GM/30 ML UDCUP PO SCH ×3 (09:30→21:41)
[2020-09-08] MEDS: INSULIN REGULAR 100 UNIT/ML SUBCUT SCH ×4 (09:30→23:39)
[2020-09-08] MEDS: FAMOTIDINE 20 MG/2 ML VIAL IV SCH (10:58)
[2020-09-08] MEDS ORDERED: MAGNESIUM SULF RIDER 2 GM in PREMIX 1 EACH IV ONE (15:00)
[2020-09-08] MEDS: SODIUM CHLORIDE 0.9% 1,000 ML IV SCH (16:39)
[2020-09-08] MEDS: LACTATED RINGERS 1,000 ML IV SCH (16:39)
[2020-09-08] MEDS: PROPRANOLOL 20 MG TABLET PO SCH (21:41)
[2020-09-09] MEDS: FAMOTIDINE 20 MG/2 ML VIAL IV SCH ×3 (00:08→21:44)
[2020-09-09 06:23] LABS: Basophils # 0.1 10*3/uL (0.0-0.2); Basophils % 1.9 % (0.0-0.8); Eosinophils # 0.4 10*3/uL (0.0-0.87); Eosinophils % 8.2 % (0.00-10.9); Hematocrit 36.3 VOL% (42.0-52.0); Hemoglobin 12.9 GM/DL (14.0-18.0); Immature Granulocytes % 0.4 %; Immature Granulocytes Absolute 0.02 #; Lymphocytes # 1.2 10*3/uL (1.4-4.0); Lymphocytes % 26.7 % (21.2-54.2); Mean Corpuscular HGB Conc 35.5 GM/DL (32-36); Mean Corpuscular Volume 99.5 FL (87-102); Mean Platelet Volume 10.4 FL (9.6-12.0); Monocytes % 14.7 % (1.7-12.7); Neutrophils % 48.1 % (38.7-73.9); Platelet Count 170 T/CUMM (130-400); Red Blood Count 3.65 MC/CUMM (3.8-5.5); Red Cell Distribution Width 13.8 % (9.3-17.3); White Blood Count 4.6 T/CUMM (4-12)
[2020-09-09 07:02] LABS: Albumin 2.1 G/DL (3.4-5.0); Bilirubin,Total 1.4 MG/DL (0.2-1.0); Calcium 8.4 MG/DL (8.5-10.1); Osmolality,Calculated 278.3 MOS/KG (273-304); Potassium 3.4 MMOL/L (3.5-5.1)
[2020-09-09] MEDS: ARFORMOTEROL 15 MCG/2 ML NEB RESP TX SCH ×2 (07:15→19:34)
[2020-09-09] MEDS: LACTULOSE 20 GM/30 ML UDCUP PO SCH ×3 (09:57→21:20)
[2020-09-09] MEDS: PROPRANOLOL 20 MG TABLET PO SCH ×2 (09:58→21:19)
[2020-09-09] MEDS: risperiDONE 1 MG TABLET PO SCH ×2 (09:58→21:19)
[2020-09-09] MEDS ORDERED: MAGNESIUM SULF RIDER 2 GM in PREMIX 1 EACH IV ONE (11:11)
[2020-09-09] MEDS ORDERED: POTASSIUM CHLORIDE 20 MEQ/15 ML UDCUP PO ONE (11:12)
[2020-09-09] MEDS: INSULIN REGULAR 100 UNIT/ML SUBCUT SCH ×3 (12:01→21:20)
[2020-09-09] MEDS: LACTATED RINGERS 1,000 ML IV SCH (12:52)
[2020-09-09] MEDS: traZODone 50 MG TABLET PO PRN (21:29)
[2020-09-10] MEDS: ARFORMOTEROL 15 MCG/2 ML NEB RESP TX SCH (07:30)
[2020-09-10 07:42] LABS: Calcium 8.4 MG/DL (8.5-10.1); Osmolality,Calculated 276.4 MOS/KG (273-304); Potassium 3.3 MMOL/L (3.5-5.1)
[2020-09-10] MEDS: INSULIN REGULAR 100 UNIT/ML SUBCUT SCH ×3 (07:45→15:41)
[2020-09-10] MEDS: PROPRANOLOL 20 MG TABLET PO SCH (08:50)
[2020-09-10] MEDS: risperiDONE 1 MG TABLET PO SCH (08:50)
[2020-09-10] MEDS: LACTULOSE 20 GM/30 ML UDCUP PO SCH ×2 (08:51→15:44)
[2020-09-10] MEDS: FAMOTIDINE 20 MG/2 ML VIAL IV SCH (09:55)
[2020-09-10 11:17] VITALS: BP 97/57
[2020-09-10] MEDS ORDERED: POTASSIUM CHLORIDE 20 MEQ/15 ML UDCUP PO ONE (11:39)
== END 2020-09-10 16:41 | disposition home or self-care (01) | DRG 279 ==
LOC: N.ED 08:02 → N.EDINP 10:15 → SUATTDRO 10:15 → N.CC 18:58 → N.3E 09-01 16:16
PROVIDERS: ADMIT Family Medicine; ATTEND Internal Medicine